=== PATIENT | female | born 1975 | race Caucasian/White ===

== ENCOUNTER 2017-07-24 20:47 | Emergency (ER) | payer BC ==
[~2017-07-24] VITALS: Ht 177.8 cm; Wt 111.0 kg
[~2017-07-24 20:47] MED LIST: CYCL-36 PO; DICL-86 PO; TRAM50 PO; Z.0.NO CURRENT MEDS
[2017-07-24 21:09] VITALS: BP 135/87; PULSE 75; RESP 18; TEMP 97.9; O2SAT 100
[2017-07-24 22:09] VITALS: RESP 16; O2SAT 100
--- NOTE | 2017-07-24 22:11 | PD ---
HPI Chief Complaint: Fall Time Seen by Provider: 21:55 Travel History International Travel<30 days: No Contact w/Intl Traveler<30days: No History of Present Illness HPI Patient is a 42-year-old female who presents to emergency room with complaints of intermittent numbness to her hands. Patient reports that a few weeks ago, she was walking and carrying a lamp. Reports that she tripped and fell forward , reports that she landed on her lamp which broke into pieces. Patient reports that when she fell, she landed onto her right side, denies any trauma to the head or neck, denies any loss of consciousness. Patient reports that since her accident, every time she lays in her back, she has numbness to her upper extremities. Patient reports that she has resolution of symptoms after she stops laying on her back. Patient reports that she is concerned as this has been going on for the past 3 weeks, she did go to her chiropractor today who instructed her go to the emergency room to obtain CTs of her back. Patient denies any headache or dizziness at this time, reports no numbness this time. Patient with no chest pain or shortness of breath. Patient also with no abdominal pain at this time. PFSH Past Medical History Depression: Yes Diminished Hearing: No Past Surgical History Surgical History: No Previous Surgery Social History Alcohol Use: Yes Tobacco Use: Yes (OCCASIONALLY WITH ALCOHOL) Substance Use: No Allergies-Medications (Allergen,Severity, Reaction): Coded Allergies: Iodine and Iodide Containing Produc (Verified Allergy, Severe, 07/24/17) morphine (Verified Allergy, Severe, 07/24/17) Reported Meds & Prescriptions Reported Meds & Active Scripts Active No Active Prescriptions or Reported Medications Review of Systems General / Constitutional: No: Fever Eyes: No: Visual changes HENT: No: Headaches Cardiovascular: No: Chest Pain or Discomfort Respiratory: No: Shortness of Breath Gastrointestinal: No: Abdominal Pain Genitourinary: No: Dysuria Musculoskeletal: Positive: Pain (back pain, neck pain) Skin: No Rash Neurologic: Positive: Paresthesia, No: Weakness Psychiatric: No: Depression Endocrine: No: Polydipsia Hematologic/Lymphatic: No: Easy Bruising Physical Exam Narrative GENERAL: Mild distress SKIN: Focused skin assessment warm/dry. HEAD: Atraumatic. Normocephalic. ENT: No nasal bleeding or discharge. Mucous membranes pink and moist. NECK: Trachea midline. No JVD. CARDIOVASCULAR: Regular rate and rhythm. No murmur appreciated. RESPIRATORY: No accessory muscle use. Clear to auscultation. Breath sounds equal bilaterally. GASTROINTESTINAL: Abdomen soft, non-tender, nondistended. Hepatic and splenic margins not palpable. MUSCULOSKELETAL: No obvious deformities. No clubbing. No cyanosis. No edema. NEUROLOGICAL: Awake and alert. No obvious cranial nerve deficits. Motor grossly within normal limits. Normal speech. CN 2-12 grossly intact with no neurovascular compromise PSYCHIATRIC: Appropriate mood and affect; insight and judgment normal. Data Data Last Documented VS Vital Signs Date Time Temp Pulse Resp B/P (MAP) Pulse Ox O2 Delivery O2 Flow Rate FiO2 07/24/17 22:09 16 100 07/24/17 21:09 97.9 75 135/87 (103) Orders Orders Ed Urine Pregnancytest Poc (07/24/17 22:02) Ct Thor Spine W/O Contrast (07/24/17 ) Ct Cerv Spine W/O Contrast (07/24/17 ) MDM Medical Decision Making Medical Screen Exam Complete: Yes Emergency Medical Condition: Yes Medical Record Reviewed: Yes Interpretation(s) Vital Signs Date Time Temp Pulse Resp B/P (MAP) Pulse Ox O2 Delivery O2 Flow Rate FiO2 07/24/17 21:09 97.9 75 18 135/87 (103) 100 Differential Diagnosis Radiculopathy,fracture, spinal compression Narrative Course 42-year-old female who presents to emergency room with complaints of 3 weeks of paresthesias to her upper extremities after she lays in her back - this began after she suffered a fall 3 weeks ago landing on her right side. Patient denies any loss of consciousness, denies any trauma to the head. Patient reports paraspinal tenderness to her cervical as well as thoracic spine. Patient this time with no paresthesias, patient with no neurological compromise. During the course of the patients emergency department visit, the patients history, examination, and differential diagnosis were reviewed with the patient. The patient was placed on a school bus monitor with oximetry and frequent blood pressure monitoring. The patient had an IV access obtained and blood work sent for analysis. Radiology studies were reviewed and remarkable for: Last Impressions Thoracic Spine CT 07/24/17 0000 Signed Impressions: Service Date/Time: Monday, July 24, 2017 22:33 - CONCLUSION: Degenerative changes to a slight degree without any significant compromise to the thecal sac or the exiting nerve roots. Swati Serrano MD Cervical Spine CT 07/24/17 0000 Signed Impressions: Service Date/Time: Monday, July 24, 2017 22:30 - CONCLUSION: Unremarkable study. Swati Serrano MD CT of the cervical spine as well as thoracic spine report was reviewed with patient in detail. Patient was given a copy of her CT studies at discharge. Patient with degenerative changes to her thoracic spine, unremarkable study to her cervical spine. Discussed with patient need to follow-up with orthopedic surgeon as outpatient, signs and symptoms of when to return to the emergency room was reviewed with patient in detail. She will return to the emergency room as needed. Diagnosis Primary Impression: Paresthesias Additional Impression: Degenerative disc disease, thoracic Referrals: Mike Schmidt MD Patient Instructions: General Instructions Additional Instructions: Please follow-up with orthopedic surgeon in one week Please follow up with your primary care doctor in 2-3 days Return to the ER if symptoms worsen or progress Return to the ER as needed Please bring your CT studies with you to your doctor's appointment for follow up on all findings from today Scripts No Active Prescriptions or Reported Meds Disposition: 01 DISCHARGE HOME Condition: Stable Marah Bush DO Jul 24, 2017 22:11
--- NOTE | 2017-07-24 23:08 | RADRPT ---
EXAM DATE/TIME: 07/24/2017 22:30 [facility] COMPARISON: No previous studies available for comparison. INDICATIONS : Intermittent numbness to bilateral upper extremities since fall three weeks ago. RADIATION DOSE: 26.65 CTDIvol (mGy) MEDICAL HISTORY : None SURGICAL HISTORY : None. ENCOUNTER: Initial ACUITY: 3 weeks PAIN SCALE: 6/10 LOCATION: neck TECHNIQUE: Volumetric scanning of the cervical spine was performed. Multiplanar reconstructions in the sagittal, coronal and oblique axial planes were performed. Using automated exposure control and adjustment o f the mA and/or kV according to patient size, radiation dose was kept as low as reasonably achievable to obtain optimal diagnostic quality images. DICOM format image data is available electronically f or review and comparison. FINDINGS: No significant subluxation or soft tissue swelling is seen. No definite fracture is seen for techniqu e. C2-C3: No appreciable compromised to the thecal sac, exiting nerve roots are seen. The neural porter carolyn are patent bilaterally. No appreciable thecal sac stenosis is seen. C3-C4: No appreciable compromised to the thecal sac, exiting nerve roots are seen. The neural porter carolyn are patent bilaterally. No appreciable thecal sac stenosis is seen. C4-C5: No appreciable compromised to the thecal sac, exiting nerve roots are seen. The neural porter carolyn are patent bilaterally. No appreciable thecal sac stenosis is seen. C5-C6: No appreciable compromised to the thecal sac, exiting nerve roots are seen. The neural porter carolyn are patent bilaterally. No appreciable thecal sac stenosis is seen. C6-C7: No appreciable compromised to the thecal sac, exiting nerve roots are seen. The neural porter carolyn are patent bilaterally. No appreciable thecal sac stenosis is seen. C7-T1: No appreciable compromised to the thecal sac, exiting nerve roots are seen. The neural porter carolyn are patent bilaterally. No appreciable thecal sac stenosis is seen CONCLUSION: Unremarkable study. Swati Serrano MD on July 24, 2017 at 23:03 Board Certified Radiologist. This report was verified electronically.
--- NOTE | 2017-07-24 23:14 | RADRPT ---
EXAM DATE/TIME: 07/24/2017 22:33 [facility] COMPARISON: No previous studies available for comparison. INDICATIONS : Intermittent numbness to bilateral upper extremities since fall three weeks ago. RADIATION DOSE: 43.13 CTDIvol (mGy) MEDICAL HISTORY : None SURGICAL HISTORY : None. ENCOUNTER: Initial ACUITY: 3 weeks PAIN SCALE: 6/10 LOCATION: spine TECHNIQUE: Volumetric scanning of the thoracic spine was performed. Multiplanar reconstructions in the sagittal, coronal and oblique axial planes were performed. Using automated exposure control a nd adjustment of the mA and/or kV according to patient size, radiation dose was kept as low as reason ably achievable to obtain optimal diagnostic quality images. DICOM format image data is available e lectronically for review and comparison. FINDINGS: No significant compression deformities are seen. Slight degenerative changes are seen within the disc space and facets worse at T5-6 T6-7 and T7-8. T1-T2: No appreciable compromise to the thecal sac, spinal cord, or the exiting nerve roots are seen. The neural foramina are grossly patent bilaterally. T2-T3: No appreciable compromise to the thecal sac, spinal cord, or the exiting nerve roots are seen. The neural foramina are grossly patent bilaterally. T3-T4: No appreciable compromise to the thecal sac, spinal cord, or the exiting nerve roots are seen. The neural foramina are grossly patent bilaterally. T4-T5: No appreciable compromise to the thecal sac, spinal cord, or the exiting nerve roots are seen. The neural foramina are grossly patent bilaterally. T5-T6: No appreciable compromise to the thecal sac, spinal cord, or the exiting nerve roots are seen. The neural foramina are grossly patent bilaterally. T6-T7: No appreciable compromise to the thecal sac, spinal cord, or the exiting nerve roots are seen. The neural foramina are grossly patent bilaterally. T7-T8: No appreciable compromise to the thecal sac, spinal cord, or the exiting nerve roots are seen. The neural foramina are grossly patent bilaterally. T8-T9: No appreciable compromise to the thecal sac, spinal cord, or the exiting nerve roots are seen. The neural foramina are grossly patent bilaterally. T9-T10: No appreciable compromise to the thecal sac, spinal cord, or the exiting nerve roots are see n. The neural foramina are grossly patent bilaterally. T10-T11: No appreciable compromise to the thecal sac, spinal cord, or the exiting nerve roots are se en. The neural foramina are grossly patent bilaterally. T11-T12: No appreciable compromise to the thecal sac, spinal cord, or the exiting nerve roots are se en. The neural foramina are grossly patent bilaterally. T12-L1: No appreciable compromise to the thecal sac, spinal cord, or the exiting nerve roots are s een. The neural foramina are grossly patent bilaterally. CONCLUSION: Degenerative changes to a slight degree without any significant compromise to the the tree sac or the exiting nerve roots. Swati Serrano MD on July 24, 2017 at 23:07 Board Certified Radiologist. This report was verified electronically.
[2017-07-24 23:40] VITALS: BP 105/81; PULSE 69; RESP 18; TEMP 97.6; O2SAT 98
== END 2017-07-24 23:56 | disposition home or self-care (01) ==
LOC: PHED 20:47
DX: R20.2 Paresthesia of skin (principal); M51.34 Other intervertebral disc degeneration, thoracic region; F32.9 Major depressive disorder, single episode, unspecified; Z72.0 Tobacco use; Z88.5 Allergy status to narcotic agent
CPT/HCPCS: 72125; 72128; 84703; 99285